=== PATIENT | female | born 1975 ===

== ENCOUNTER 2017-12-08 07:54 | Inpatient (IN) | payer OTHER ==
[~2017-12-08] VITALS: Ht 167.6 cm; Wt 90.3 kg
[2017-12-08] VITALS (14 sets, daily range): BP systolic 92–126; BP diastolic 48–70
[~2017-12-08 07:54] MED LIST: ceFAZolin sod 2 GM in D5W 110 ML IVPB ONE
[2017-12-08] MEDS ORDERED: AMBIEN10 M1 ORAL (09:06)
[2017-12-08] MEDS ORDERED: ROBAXIN500 MG PO (09:06)
[2017-12-08] MEDS ORDERED: Midazolam 2mg/2ml Inj ONE (09:41)
[2017-12-08] MEDS ORDERED: fentaNYL 100 mcg/2 mL IV ONE (09:42)
--- NOTE | 2017-12-08 10:15 | Pre-Procedure Note/Attestation ---
Pre-Procedure Note/Attestation Complete Prior to Procedure Procedure Narrative: acdf c5-7 with bmac Indications for Procedure Pre-Operative Diagnosis: cervical myeloradiculopathy Attestation I attest that I discussed the nature of the procedure; its benefits; risks and complications; and alternatives (and the risks and benefits of such alternatives ), prior to the procedure, with the patient (or the patient's legal administrative representative). I attest that, if there was a reasonable possibility of needing a blood transfusion, the patient (or the patient's legal administrative representative) was given the [facility] standardized written summary, pursuant to the [place] Blood Safety Act ([place] Health and Safety Code # 1645, as amended). I attest that I re-evaluated the patient just prior to the surgery and that there has been no change in the patient's H&P, except as documented below: Kurt Maxwell MD Dec 08, 2017 10:15
[2017-12-08] MEDS ORDERED: Bacitracin 50000 Units Vial ONE (10:17)
[2017-12-08] MEDS ORDERED: EPINEPHrine 1mg/1ml Amp ONE (10:19)
[2017-12-08] MEDS ORDERED: Thrombin 5000 units TOPIC ONE ×2 (10:20→10:21)
[2017-12-08] MEDS ORDERED: Bupivacaine 0.5% Inj 30 ml vial INJ ONE (10:20)
[2017-12-08] MEDS ORDERED: Gelfoam Size TOPIC ONE (10:20)
[2017-12-08] MEDS ORDERED: Zemuron 50mg/5ml Inj IV ONE (10:25)
[2017-12-08] MEDS ORDERED: Succinylcholine 20mg/ml 10ml vial ONE (10:25)
[2017-12-08] MEDS ORDERED: Propofol 200mg/20ml IV ONE ×2 (10:28→14:32)
[2017-12-08] MEDS ORDERED: Sodium Chloride 10ml vial INJ ONE (10:28)
[2017-12-08] MEDS ORDERED: Sterile Water Irrig 1000ml IRRIG ONE (10:30)
[2017-12-08] MEDS ORDERED: ePHEDrine 50mg/ml Inj ONE (10:30)
[2017-12-08] MEDS ORDERED: NS Irrig 1000ml ONE (10:30)
[2017-12-08] MEDS ORDERED: Dexamethasone 4mg/ml vial ONE (10:30)
[2017-12-08] MEDS ORDERED: LR 1000ml ONE (10:30)
[2017-12-08] MEDS ORDERED: Atropine Sulfate 0.4mg/ml inj ONE (10:30)
[2017-12-08] MEDS ORDERED: Heparin 5000 units/ml inj ONE (10:51)
[2017-12-08] MEDS ORDERED: LR 1000ml 1,000 ML IVLG SCH (12:19)
[2017-12-08] MEDS ORDERED: Meperidine 50mg/ml Inj(FOR RIGORS ONLY) IVP PRN (12:30)
[2017-12-08] MEDS ORDERED: LORazepam Inj 2mg/ml 1ml IV PRN (12:30)
[2017-12-08] MEDS ORDERED: HYDROmorphone 1mg/ml Carpuject IVP PRN (12:30)
[2017-12-08] MEDS ORDERED: DiphenhydrAMINE 50mg/ml Inj IVP PRN (12:30)
--- NOTE | 2017-12-08 12:32 | Anethesia Preoperative Eval ---
Anesthesia Pre-op PMH/ROS General Date of Evaluation: Dec 08, 2017 Time of Evaluation: 10:30 Anesthesiologist: Wiley ASA Score: ASA 1 Mallampati Score Class I : Soft palate, uvula, fauces, pillars visible Class II: Soft palate, uvula, fauces visible Class III: Soft palate, base of uvula visible Class IV: Only hard plate visible Mallampati Classification: Class I Surgeon: Hans Diagnosis: Cervical radiculopathy Surgical Procedure: ACDF Family History: no anesthesia problems Allergies: Coded Allergies: No Known Allergies (Unverified , 12/02/17) Medications: see eMAR Past Medical History Cardiovascular: Denies: HTN, CAD, DC, valve dz, arrhythmia, other Pulmonary: Denies: asthma, COPD, AMELIA, other Gastrointestinal/Genitourinary: Denies: GERD, CRI, ESRD, other Neurologic/Psychiatric: Denies: dementia, CVA, depression/anxiety, TIA, other Endocrine: Denies: DM, hypothyroidism, steroids, other HEENT: Denies: cataract (L), cataract (R), glaucoma, [place] (L), [place] (R), other Hematology/Immune: Denies: anemia, DVT, bleeding disorder, other Musculoskeletal/Integumentary: Denies: OA, RA, DJD, DDD, edema, other PMH Narrative: Denies significant PMH PSxH Narrative: C/S, AP Anesthesia Pre-op Phys. Exam Physician Exam Last Vital Signs Date Time Temp Pulse Resp B/P (MAP) Pulse Ox O2 Delivery O2 Flow Rate FiO2 12/08/17 09:23 98.2 51 20 119/68 (85) 100 98.2 12/08/17 09:07 Room Air Constitutional: NAD Neurologic: CN 2-12 intact Cardiovascular: RRR, no M/R/G Respiratory: CTA Gastrointestinal: S/NT/ND Airway Exam Mallampati Score: Class II MO: full ROM: full Teeth: intact Anesthesia Pre-op A/P Labs WNL Urine Test Test 12/08/17 08:10 Urine HCG, Qualitative Negative (NEGATIVE) Studies Pre-op Studies: EKG - SR Risk Assessment & Plan Assessment: Healthy female here for ACDF Plan: GETA, SedLine, [place] scope vs fiberoptic intubation Status Change Before Surgery: No Pre-Antibiotics Drug: Ancef Given Within 1 Hr of Incision: Yes Time Given: 11:15 Yovanny Jama MD Dec 08, 2017 12:32
--- NOTE | 2017-12-08 12:33 | Immediate Post-Op Evaluation ---
Immediate Post-Op Evalulation Immediate Post-Op Evalulation Procedure: ACDF Date of Evaluation: Dec 08, 2017 Time of Evaluation: 15:15 IV Fluids: 1800 Estimated Blood Loss: 70 Urinary Output: 400 Blood Pressure Systolic: 126 Blood Pressure Diastolic: 61 Pulse Rate: 70 Respiratory Rate: 10 O2 Sat by Pulse Oximetry: 100 Temperature (Fahrenheit): 98.7 Pain Score (1-10): 3 Nausea: No Vomiting: No Complications No complications Patient Status: awake, patent, extubated, none Hydration Status: adequate Drug: Ancef Given Within 1 Hr of Incision: Yes Time Given: 11:15 Yovanny Jama MD Dec 08, 2017 12:33
[2017-12-08] MEDS ORDERED: Vancomycin 1gm inj IVPB ONE (14:31)
--- NOTE | 2017-12-08 14:59 | Brief Operative Note ---
Immediate Post Operative Note Operative Note Pre-op Diagnosis: cervical myeloradiculopathy Procedure: acdf c5-7 with BMAC Post-op Diagnosis: same as pre-op Findings: consistent w/pre-op dx studies Surgeon: VIRGINIA Calender Runner: SYDNIE Anesthesiologist: ADARSH Anesthesia: general Specimen: yes Complications: none Condition: stable Fluids: 1700CC Estimated Blood Loss: minimal - 70CC Drains: none Implant(s) used?: Yes Kurt Maxwell MD Dec 08, 2017 14:59
[2017-12-08] MEDS ORDERED: Hydromorphone 0.5mg/0.5ml inj IVP PRN (16:00)
--- NOTE | 2017-12-08 17:02 | Diagnostic Imaging Report ---
Indication: Neck Pain Findings: 3 fluoroscopic views of the cervical spine were obtained. Localization image followed by perfusion at 3 levels, namely C5-C7 demonstrated. The intervening C5-6 and C6-7 discs were replaced. IMPRESSION: Intraoperative imaging
[2017-12-08] MEDS ORDERED: Naloxone 0.4mg/ml Inj IVP PRN (17:15)
[2017-12-08] MEDS ORDERED: Norco 5mg/325mg tab ORAL PRN (17:30)
[2017-12-08] MEDS ORDERED: Morphine Sulfate 2mg/ml Inj(IV/IM USE ONLY) IV PRN (17:30)
[2017-12-08] MEDS ORDERED: Morphine Sulfate 4mg/ml Inj (IV USE ONLY) IV PRN (17:30)
[2017-12-08] MEDS ORDERED: ceFAZolin sod 1 GM in D5W 55 ML IV SCH (18:00)
[2017-12-08] MEDS: Docusate 100mg cap ORAL SCH (18:09)
[2017-12-08] MEDS: D5 1/2NS 1,000 ML IV SCH (18:09)
[2017-12-08] MEDS: Morphine Sulfate 4mg/ml Inj (IV USE ONLY) IV PRN ×2 (19:42→22:51)
[2017-12-08] MEDS: ceFAZolin sod 1 GM in D5W 55 ML IV SCH (20:06)
[2017-12-08] MEDS ORDERED: Zolpidem 5mg tab ORAL PRN (21:00)
[2017-12-08] MEDS: HYDROcodone/Acetamin 7.5/325 tab ORAL PRN (23:27)
[2017-12-09] VITALS: BP 111/57
[2017-12-09] MEDS: D5 1/2NS 1,000 ML IV SCH (03:15)
[2017-12-09 04:00] VITALS: BP 117/61
[2017-12-09] MEDS: ceFAZolin sod 1 GM in D5W 55 ML IV SCH ×2 (04:30→11:17)
[2017-12-09] MEDS: Morphine Sulfate 4mg/ml Inj (IV USE ONLY) IV PRN ×2 (04:31→07:55)
[2017-12-09] MEDS: HYDROcodone/Acetamin 7.5/325 tab ORAL PRN ×4 (05:33→21:53)
[2017-12-09 08:00] VITALS: BP 118/61
[2017-12-09] MEDS: Docusate 100mg cap ORAL SCH ×2 (08:35→17:19)
--- NOTE | 2017-12-09 09:20 | 48 Hour Post Anesthesia Eval ---
Post Anesthesia Evaluation Procedure: ACDF Date of Evaluation: Dec 09, 2017 Blood Pressure Systolic: 118 0: 61 Pulse Rate: 82 Respiratory Rate: 19 Temperature (Fahrenheit): 97.9 O2 Sat by Pulse Oximetry: 98 Airway: patent Nausea: No Vomiting: No Hydration Status: adequate Cardiopulmonary Status: Stable Mental Status/LOC: patient returned to baseline Follow-up Care/Observations: As per surgery Post-Anesthesia Complications: No anesthetic complication Follow-up care needed: N/A Yovanny Jama MD Dec 09, 2017 09:20
--- NOTE | 2017-12-09 11:32 | History and Physical ---
History of Present Illness General Date patient seen: Dec 09, 2017 Present Illness HPI 42 year old female with hx of cervical myeloradiculopathy admitted for acdf c5- 7. After the surgery she is admitted to medical floor for post-op care. Allergies: Coded Allergies: No Known Allergies (Unverified , 12/02/17) Medication History Scheduled Methocarbamol* (Robaxin*), 500 MG PO TID, (Reported) Scheduled PRN Zolpidem Tartrate* (Ambien*), 10 MG ORAL HS PRN for Insomnia, (Reported) Patient History Healthcare decision maker MATT Resuscitation status Full Code Advanced Directive on File Review of Systems All Other Systems: negative except mentioned in HPI Physical Exam General Appearance: WD/WN Lines, tubes and drains: central line HEENT: normocephalic, atraumatic Neck: non-tender, normal alignment Respiratory/Chest: chest wall non-tender, lungs clear Cardiovascular/Chest: normal rate Abdomen: normal bowel sounds, non tender Genitourinary/Rectal: normal genital exam Extremities: normal range of motion Last 24 Hour Vital Signs Date Time Temp Pulse Resp B/P (MAP) Pulse Ox O2 Delivery O2 Flow Rate FiO2 12/09/17 09:20 208.2 82 19 98 12/09/17 09:00 Room Air 12/09/17 08:00 97.9 82 19 118/61 (80) 98 97.9 12/09/17 04:00 97.9 81 18 117/61 (79) 98 97.9 12/09/17 00:00 98.0 69 16 111/57 (75) 98 98.0 12/08/17 21:00 97.9 74 18 108/55 (72) 98 97.9 12/08/17 21:00 Nasal Cannula 3.0 12/08/17 20:00 97.9 74 16 108/55 (72) 98 97.9 12/08/17 18:00 96.6 68 16 92/48 (63) 100 96.6 12/08/17 17:00 99.0 69 18 110/58 (75) 98 99.0 12/08/17 17:00 99.0 69 18 110/58 (75) 98 99.0 12/08/17 16:50 Nasal Cannula 3.0 12/08/17 16:45 97.7 78 18 110/70 100 Nasal Cannula 3.0 97.7 12/08/17 16:30 75 17 106/56 100 Nasal Cannula 3.0 12/08/17 16:15 74 18 105/55 100 Nasal Cannula 3.0 12/08/17 16:13 97.7 12/08/17 16:13 97.7 12/08/17 16:04 97.6 12/08/17 16:00 75 19 106/52 100 Nasal Cannula 3.0 12/08/17 15:45 71 18 116/56 100 Nasal Cannula 3.0 12/08/17 15:43 97.6 12/08/17 15:30 77 17 120/54 100 Simple Mask 6.0 12/08/17 15:17 209.7 70 10 100 12/08/17 15:15 81 16 126/61 100 Simple Mask 6.0 12/08/17 15:10 80 17 104/59 100 Simple Mask 6.0 12/08/17 15:05 97.6 83 18 117/59 100 Simple Mask 6.0 97.6 Intake and Output 12/08/17 12/09/17 19:00 07:00 Intake Total 2020 ml 1180 ml Output Total 470 ml 2050 ml Balance 1550 ml -870 ml Intake Oral 120 ml 780 ml IV Total 1900 ml 400 ml Output Urine Total 400 ml 2050 ml Estimated Blood Loss 70 ml # Voids 2 Height (Feet): 5 Height (Inches): 6.00 Weight (Pounds): 199 Medications Current Medications Medications (Trade) Dose Ordered Sig/Fanny Route PRN Reason Start Time Stop Time Status Last Admin Dose Admin Acetaminophen/ Hydrocodone Bitart ([place] 5/325) 1 tab Q3H PRN ORAL pain score 1-3 12/08/17 17:30 12/15/17 17:29 Acetaminophen/ Hydrocodone Bitart ([place] 7.5/325) 1 tab Q3H PRN ORAL pain score 4-6 12/08/17 17:30 12/15/17 17:29 12/09/17 09:17 Acetaminophen/ Hydrocodone Bitart ([place] 7.5/325) 2 tab Q3H PRN ORAL pain scale 7-10 12/08/17 17:30 12/15/17 17:29 12/09/17 05:33 Cefazolin Sodium 1 gm/Dextrose 55 ml @ 110 mls/hr Q8HR@0400,1200,2000 IV 12/08/17 20:00 12/09/17 12:29 12/09/17 11:17 Dextrose/Sodium Chloride 1,000 ml @ 100 mls/hr Q10H IV 12/08/17 17:15 01/07/18 17:14 12/09/17 03:15 Docusate Sodium (Colace) 100 mg TWICE A DAY ORAL 12/08/17 18:00 01/07/18 17:59 12/09/17 08:35 Morphine Sulfate (Morphine Sulfate) 2 mg Q4H PRN IV Mild Pain (Pain Scale 1-3) 12/08/17 17:30 12/15/17 17:29 Morphine Sulfate (Morphine Sulfate) 4 mg Q3H PRN IV Severe Pain (Pain Scale 7-10) 12/08/17 17:30 12/15/17 17:29 12/09/17 07:55 Morphine Sulfate (Morphine Sulfate) 4 mg Q4H PRN IV Moderate Pain (Pain Scale 4-6) 12/08/17 17:30 12/15/17 17:29 Naloxone HCl (Narcan) 0.1 mg PRN PRN IVP RR<12/min, pt unarousable 12/08/17 17:15 01/07/18 17:14 Temazepam (Restoril) 7.5 mg HSPRN PRN ORAL Insomnia 12/08/17 19:15 12/15/17 19:14 12/09/17 01:14 Assessment/Plan Problem List: (1) Cervical myelopathy with cervical radiculopathy ICD Codes: M47.12 - Other spondylosis with myelopathy, cervical region SNOMED: 390715104 (2) acdf c5-7 Assessment/Plan post op care pain management symptomatic treatment pt ot dvt prophylaxis Adam Greer MD Dec 09, 2017 11:32
[2017-12-09 12:00] VITALS: BP 109/52
[2017-12-09 16:00] VITALS: BP 94/64
[2017-12-09 20:00] VITALS: BP 122/86
[2017-12-10] VITALS: BP 111/70
[2017-12-10] MEDS: HYDROcodone/Acetamin 7.5/325 tab ORAL PRN ×4 (01:00→14:40)
[2017-12-10 04:00] VITALS: BP 100/69
--- NOTE | 2017-12-10 05:45 | Operative Note - Dictated ---
DATE OF OPERATION: 12/08/2017 PREOPERATIVE DIAGNOSES: 1. C5-C6 disk extrusion with spinal cord compression and stenosis. 2. C6-C7 spondylosis with stenosis and disk protrusion. 3. Myeloradiculopathy. POSTOPERATIVE DIAGNOSES: 1. C5-C6 disk extrusion with spinal cord compression and stenosis. 2. C6-C7 spondylosis with stenosis and disk protrusion. 3. Myeloradiculopathy. PROCEDURE PERFORMED: 1. Anterior interbody fusion at C5-C6 including radical diskectomy and decompression. 2. Anterior interbody fusion at C6-C7 including radical diskectomy and decompression. 3. Anterior cervical instrumentation at C5 through C7. 4. Implantation of PEEK interbody device at C5-C6 and C6-C7. 5. Acquisition of local autograft for fusion at C5-C6 and C6-C7. 6. Placement of [place] allograft at C5-C6 and C6-C7 for fusion. 7. Aspiration of bone marrow from the right iliac crest. SURGEON: Kurt Maxwell M.D. CLOTHING SUPERVISOR: Kian Kelsey. ANESTHESIA: General endotracheal anesthesia. ANESTHESIOLOGIST: Yovanny Mcnulty M.D. ESTIMATED BLOOD LOSS: 70 mL. FLUIDS: 1700 mL of crystalloid. COMPLICATIONS: None. SPECIMENS: Disk at C5-C6 and C6-C7. BACKGROUND INDICATIONS: The patient is a pleasant female who has failed nonoperative treatment, had had upper motor neuron signs and myeloradiculopathy and options for above treatment was given. Risks, alternatives, and benefits were discussed with the patient at length. Risks to include, but are not limited to, anesthesia complications including , medical complications including liver, kidney, and cardiopulmonary deficits, bleeding, infection, dysphonia, dysphagia, hematoma of the neck, nerve root injury, paralysis, spinal cord injury, CSF leak, dural tear, fracturing of the hardware, loosening of the hardware, need for revision, decompression and fusion, swallowing difficulties, esophageal injury, tracheal injury, recurrent laryngeal nerve injury as well as other complications including compartment syndrome. The patient understood and wished to proceed. All the patient's questions were answered. Written and verbal consent was given. No guarantees were given. OPERATIVE FINDINGS: 1. Large disk extrusion at C5-C6 with severe spinal cord stenosis and spinal cord compression at C5-C6 with foraminal stenosis. 2. Disk height collapse and spondylosis at C6-C7 with disk protrusion, foraminal stenosis, and impingement of the bilateral C7 nerve roots. DESCRIPTION OF OPERATION: The patient was brought into the operating room supine on a stretcher. Appropriate IV lines were placed by the anesthesiologist and 2 g of Ancef was administered. A Montgomery was placed under sterile conditions. EMG, SSEP, and MEP leads were placed. The patient was induced and intubated via a GlideScope without neck extension. The patient was positioned onto the operating room table. The neck was placed into neutral alignment. The arms were tucked by the side. All bony prominences well padded as well as the four extremities. SSEP leads were placed. Preoperative fluoroscopy revealed the planned incision to be over the C6 vertebral body. Fluoroscopy revealed the neck to be in adequate alignment. The neck was prepped and draped in usual sterile fashion with alcohol, chlorhexidine scrub, and ChloraPrep. The right iliac crest was also prepped and draped in usual sterile fashion. At this point, attention was first diverted to bring in the intraoperatively sterilely draped microscope. An incision was carried out with a scalpel on the anterior right side of the neck in the crease of the neck. Hemostasis was achieved with bipolar cautery. The platysma was incised in line with the skin incision. Blunt dissection was carried out in the interval between the strap muscles and sternocleidomastoid. Superficial cervical fascia was dissected caudally as well as cephalad. The carotid pulse was palpated and was found to be well lateral to the field of dissection. Deep cervical fascia was encountered. Once the deep cervical fascia was found, blunt dissection was carried out with [place] as well as finger dissection to find the prevertebral space. The longus colli was found on both sides of the spine. The longus colli was subperiosteally dissected off of the spine and at this point, retractors were set in place. Spinal needle was used to identify the disk space and lateral fluoroscopy was used to find the C5-C6 and C6-C7 disk spaces. Face And Fill Packer retractors were set into place and attention was first diverted to the C5-C6 level. With the use of a #15 scalpel, a box incision was made in the anterior anulus. With the use of straight and curved curette as well as a high speed drill, a radical diskectomy and uncovertebrectomy was done at C5-C6. A -22 modifier increased procedural services was used at the C5-C6 level given the increased time, effort, and technical difficulty of doing the decompression diskectomy and decompressing the spinal cord, the nerve root given the very large disk extrusion that existed centrally and left paracentrally causing severe spinal cord compression at the C5-C6 level. With the use #1 and #2 Microsect curette, the PLL was carefully peeled off of the dura. The dura was found and a very large disk herniation was carefully removed from the C5-C6 level using Microsect curette as well as number #1 and #2 [place] punches. Complete decompression of the spinal canal lateral recess and foramina was accomplished and complete decompression of the spinal cord as well as the exiting C6 nerve roots bilaterally was accomplished. Valsalva 40 mmHg was done and there was no CSF leak and a complete decompression was assured. Once this was completed, attention now was diverted to the C6-C7 level with the same instruments including a #15 scalpel straight and curved curette, a high-speed drill, a radical diskectomy was accomplished at C6-C7 including an uncovertebrectomy and removal of the disk herniation at C6-C7. The posterior longitudinal ligament was found and with #1 and #2 Microsect curette, the PLL was carefully removed until there was a complete decompression of the spinal canal lateral recess and foramina and complete decompression of the spinal cord and exiting C7 nerve roots bilaterally. Valsalva at 40 mmHg was done and there was no CSF leak. Now, attention was diverted to irrigation, complete triple antibiotic irrigation was used. Hemostasis was achieved with FloSeal, Gelfoam, thrombin, and patties. Once this was accomplished, the neck was now placed into slight extension by removing several sheaths from behind the head and lateral fluoroscopy revealed excellent lordosis at the C5-C6 and C6-C7 levels. MEP, SSEP, and EMG monitoring was done throughout the case and there was no sustained activity and MEP had a significant increase in amplitude by the end of the case and EMG remained quiet. Once this was accomplished, now attention was diverted to sizing for the PEEK interbody device. Please note that before skin incision, an aspiration of the right iliac crest was done via a Jamshidi needle, which was inserted into the right iliac crest and 30 mL of bone marrow was aspirated, and was subsequently spun down for the concentrate which was later used inside the PEEK interbody devices for fusion at the C5-C6 and C6-C7 levels. Now trials from the spinal element system was used and an 8 mm x 13 mm x 16 mm 7-degree lordosis cage was chosen for the C6-C7 level and packed with bone marrow aspirate concentrate, [place] allograft and autograft which was acquired from the C5-C6 and C7 vertebral bodies. The PEEK interbody device was tamped into place at C6-C7 with excellent recreation of lordosis at C6-C7. Now, a spinal element cage measuring 7 mm in height x 13 mm x 16 mm, 7-degree lordosis was chosen and again packed with allograft, autograft, and bone marrow aspirate concentrate and was tamped into place at C5-C6 with excellent recreation of lordosis. Now, a RTI [place] plate 2-level plate measuring 30 mm was chosen, was bent into a lordotic shape for getting lordosis at C5 through C7 when it was fixed to the anterior surface of the C5, C6, C7 vertebral bodies with variable angle 16 mm self-drilling screws, which had excellent purchase into the vertebral bodies and sat below the locking mechanism of the [place] plate well. Final fluoroscopy images AP and lateral revealed all instrumentation to be in excellent position. All sponge, needle, and instrument counts were correct. Meticulous hemostasis was achieved with Gelfoam, thrombin, FloSeal, and patties. The wound previously was coated was irrigated with triple antibiotic solution. A 1 g of vancomycin powder was placed. The platysma was closed with 3-0 Vicryl sutures in a watertight interrupted fashion. The subcuticular layer was closed with 3-0 Monocryl sutures in a watertight interrupted fashion. The skin was closed with Dermabond. Sterile dressing and tape was placed. Cervical collar was placed. The patient was extubated in a stable condition, was found to be neurovascularly intact, and was taken to the recovery room in stable condition. Kurt Maxwell M.D. DR: REJI JOB#: [id number] CC:
[2017-12-10 08:00] VITALS: BP 147/93
[2017-12-10] MEDS: Docusate 100mg cap ORAL SCH (08:52)
[2017-12-10 12:00] VITALS: BP 114/73
--- NOTE | 2017-12-10 13:18 | Pulmonology Progress Note ---
Assessment/Plan Problems: (1) Cervical myelopathy with cervical radiculopathy (2) acdf c5-7 Assessment/Plan pain management symptomatic treatment dvt prophylaxis Subjective ROS Limited/Unobtainable: No Constitutional: Reports: no symptoms HEENT: Repors: no symptoms Respiratory: Reports: no symptoms Allergies: Coded Allergies: No Known Allergies (Unverified , 12/02/17) Objective Last 24 Hour Vital Signs Date Time Temp Pulse Resp B/P (MAP) Pulse Ox O2 Delivery O2 Flow Rate FiO2 12/10/17 12:00 97.7 95 18 114/73 (87) 100 97.7 12/10/17 11:21 98.4 12/10/17 08:14 Room Air 12/10/17 08:00 98.4 66 18 147/93 (111) 98.4 12/10/17 07:57 98.4 12/10/17 04:00 98.1 68 18 100/69 (79) 97 98.1 12/10/17 00:00 98.3 86 18 111/70 (84) 97 98.3 12/09/17 21:00 Room Air 12/09/17 20:00 98.1 85 18 122/86 (98) 97 98.1 12/09/17 16:00 96.8 81 20 94/64 (74) 99 96.8 Intake and Output 12/09/17 12/10/17 19:00 07:00 Intake Total 655 ml 720 ml Balance 655 ml 720 ml Intake Oral 720 ml IV Total 655 ml # Voids 4 General Appearance: WD/WN HEENT: normocephalic, atraumatic, PERRL Breasts: no masses Cardiovascular: normal rate Abdomen: normal bowel sounds, soft, non tender Extremities: no clubbing Skin: no rash, no lesions Microbiology Date/Time Source Procedure Growth Status 12/08/17 09:45 Nasal Nares MRSA Culture - Final NO METHICILLIN RESISTANT STAPH AUREUS... Complete Current Medications Medications (Trade) Dose Ordered Sig/Fanny Route PRN Reason Start Time Stop Time Status Last Admin Dose Admin Acetaminophen/ Hydrocodone Bitart ([place] 5/325) 1 tab Q3H PRN ORAL pain score 1-3 12/08/17 17:30 12/15/17 17:29 Acetaminophen/ Hydrocodone Bitart ([place] 7.5/325) 1 tab Q3H PRN ORAL pain score 4-6 12/08/17 17:30 12/15/17 17:29 12/10/17 11:21 Acetaminophen/ Hydrocodone Bitart ([place] 7.5/325) 2 tab Q3H PRN ORAL pain scale 7-10 12/08/17 17:30 12/15/17 17:29 12/10/17 06:58 Docusate Sodium (Colace) 100 mg TWICE A DAY ORAL 12/08/17 18:00 01/07/18 17:59 12/10/17 08:52 Morphine Sulfate (Morphine Sulfate) 2 mg Q4H PRN IV Mild Pain (Pain Scale 1-3) 12/08/17 17:30 12/15/17 17:29 Morphine Sulfate (Morphine Sulfate) 4 mg Q3H PRN IV Severe Pain (Pain Scale 7-10) 12/08/17 17:30 12/15/17 17:29 12/09/17 07:55 Morphine Sulfate (Morphine Sulfate) 4 mg Q4H PRN IV Moderate Pain (Pain Scale 4-6) 12/08/17 17:30 12/15/17 17:29 Naloxone HCl (Narcan) 0.1 mg PRN PRN IVP RR<12/min, pt unarousable 12/08/17 17:15 01/07/18 17:14 Temazepam (Restoril) 7.5 mg HSPRN PRN ORAL Insomnia 12/08/17 19:15 12/15/17 19:14 12/10/17 02:02 Adam Greer MD Dec 10, 2017 13:18
[2017-12-10] MEDS ORDERED: Morphine Sulfate 2mg/ml Inj(IV/IM USE ONLY) IM PRN ×3 (15:19→15:22)
[2017-12-10] MEDS ORDERED: NORCO 10-325 T1 EACH ORAL (15:31)
[2017-12-10] MEDS ORDERED: SOMA350 MG PO (15:32)
[2017-12-10 16:00] VITALS: BP 100/51
--- NOTE | 2017-12-11 12:10 | Discharge Summary ---
Discharge Summary Discharge Summary _ DATE OF ADMISSION: 12/08/2017 DATE OF DISCHARGE: 12/10/2017 CONSULTANTS: Dr. Adam Greer BRIEF HOSPITAL COURSE: Patient is a 42-year-old female, diagnosed with myeloradiculopathy with C5-C6 disc extrusion with spinal cord compression and stenosis; C6-C7 spondylosis with stenosis and disc protrusion, who had failed nonoperative treatment and had upper motor neuron signs and myeloradiculopathy was admitted and underwent ACDF on C5-C6 and C6-C7. She tolerated procedure well. Postoperatively, she was admitted for postop care. She was placed on SCDs for DVT prophylaxis and was given incentive spirometry. She was given pain management. She had severe pain and was given morphine IV. She was seen by physical therapist and occupational therapist. She was advised to wear cervical collar. Diet was advanced. Montgomery catheter was removed. Patient was voiding well. She was ambulating well and had good pain control. She was discharged home. FINAL DIAGNOSES: C5-C6 disc extrusion with spinal cord compression and stenosis C6-C7 spondylosis with stenosis and disc protrusion Myeloradiculopathy Status post ACDF C5-C6 and C6-C7 (refer to operative report) DISPOSITION: Patient was discharged home. DISCHARGE MEDICATIONS: Refer to Discharge Medication List. DISCHARGE INSTRUCTIONS: Follow up in a week. I have been assigned to dictate discharge summary on this account, and I was not involved in the patient's management. Charito Benavides NP Dec 11, 2017 12:10
== END 2017-12-10 16:00 | disposition home or self-care (01) | DRG 473 ==
LOC: SDSOVERFLO 07:54 → 4E 17:00 → 3E 12-09 07:35
PROC: 07DR3ZZ Extraction of Iliac Bone Marrow, Percutaneous Approach (ICD-10-PCS; principal; 2017-12-08 10:30)
PROC: 0RT30ZZ Resection of Cervical Vertebral Disc, Open Approach (ICD-10-PCS; principal; 2017-12-08 10:30)
PROC: 0RG20A0 Fusion of 2 or more Cervical Vertebral Joints with Interbody Fusion Device, Anterior Approach, Anterior Column, Open Approach (ICD-10-PCS; principal; 2017-12-08 10:30)
DX: M50.022 Cervical disc disorder at C5-C6 level with myelopathy (principal); M50.122 Cervical disc disorder at C5-C6 level with radiculopathy; M47.22 Other spondylosis with radiculopathy, cervical region; M48.02 Spinal stenosis, cervical region
CPT/HCPCS: 36415; 72040; 76001; 81025; 86850; 86900; 86901; 87081; 94003; 94150; J2250; J2405